=== PATIENT | male | born 1965 | race Caucasian/White ===

== ENCOUNTER 2024-01-04 15:40 | Outpatient (CLI) | payer MEDICAID ==
[~2024-01-04] VITALS: Ht 180.3 cm; Wt 148.8 kg
[2024-01-04] MEDS: albuterol 2.5 MG/3 ML nebule NEB ONE (16:47)
[2024-01-04 16:50] VITALS: PULSE 74; RESP 16; O2SAT 97
[2024-01-04 17:04] VITALS: PULSE 77; RESP 16
== END 2024-01-04 23:59 | disposition home or self-care (01) ==
LOC: RT 15:40
PROVIDERS: ATTEND Student in an Organized Health Care Education/Training Program
DX: R94.2 Abnormal results of pulmonary function studies (principal); R06.02 Shortness of breath
CPT/HCPCS: 94060; 94760